=== PATIENT | female | born 1975 | race Caucasian/White ===

== ENCOUNTER 2019-09-24 08:36 | Inpatient (IN) | payer OTHER ==
[~2019-09-24] VITALS: Ht 162.6 cm; Wt 97.5 kg
[~2019-09-24 08:36] MED LIST: BUPROPION XL300 MG PO; CLONAZEPAM0.5 MG PO; ESTAZOLAM2 MG PO; ZANTAC150 MG PO; [UNRECOGNIZED DRUG - OTHER] PO
[2019-09-26] MEDS ORDERED: DULOXETINE HCL40 MG PO (08:28)
[2019-09-26] MEDS ORDERED: BIOTIN1 M1 PO (08:28)
[2019-09-26] MEDS ORDERED: DERMACINRX5000 UNIT PO (08:29)
[2019-09-28] MEDS ORDERED: VITAMIN D3125 MC1 PO (09:36)
[2019-09-28] MEDS ORDERED: DULOXETINE HCL30 MG PO (09:37)
== END 2019-10-01 14:03 | disposition home or self-care (01) | DRG 742 ==
LOC: OB/GYN 09-26 07:15 → SURH 09-28 07:15 → O/R 09-28 07:27 → OB/GYN 09-28 07:27 → SURH 09-28 09:00 → OB/GYN 09-28 14:20
PROVIDERS: ADMIT Obstetrics & Gynecology; ATTEND Obstetrics & Gynecology
PROC: 0UT90ZL Resection of Uterus, Supracervical, Open Approach (ICD-10-PCS; principal; 2019-09-29)
PROC: 30233N1 Transfusion of Nonautologous Red Blood Cells into Peripheral Vein, Percutaneous Approach (ICD-10-PCS; 2019-09-29)
PROC: 0DNW0ZZ Release Peritoneum, Open Approach (ICD-10-PCS; 2019-09-29)
DX: D25.1 Intramural leiomyoma of uterus (principal); D62 Acute posthemorrhagic anemia; D25.0 Submucous leiomyoma of uterus; D25.2 Subserosal leiomyoma of uterus; F32.9 Major depressive disorder, single episode, unspecified; L98.0 Pyogenic granuloma; R00.0 Tachycardia, unspecified; N73.6 Female pelvic peritoneal adhesions (postinfective)

== ENCOUNTER 2021-06-26 08:30 | Inpatient (IN) | payer OTHER ==
[~2021-06-26] VITALS: Ht 162.6 cm; Wt 99.8 kg
[~2021-06-26 08:30] MED LIST changes: +BIOTIN1 M1 PO; +DERMACINRX5000 UNIT PO; +DULOXETINE HCL30 MG PO; +DULOXETINE HCL40 MG PO; +VITAMIN D3125 MC1 PO
[2021-06-26] MEDS ORDERED: VENLAFAXINE HC150 MG PO (10:15)
[2021-06-26] MEDS ORDERED: BUSP PO (10:16)
[2021-06-26] MEDS ORDERED: METFOR PO (10:16)
[2021-06-26] MEDS ORDERED: VYVANSE40 MG PO (10:17)
[2021-06-26] MEDS ORDERED: CLARITIN5 MG PO (10:17)
[2021-06-26] MEDS ORDERED: ESTAZOLAM2 MG PO (10:17)
[2021-06-26] MEDS ORDERED: CARAFATE1 GM PO (10:18)
[2021-07-02] MEDS ORDERED: METFORMIN HCL750 MG PO (08:39)
[2021-07-02] MEDS ORDERED: BUSPIRONE HCL10 MG (08:39)
[2021-07-06] MEDS ORDERED: CIPRO500 MG PO (13:22)
[2021-07-06] MEDS ORDERED: METRONIDAZOLE500 MG PO (13:23)
[2021-07-06] MEDS ORDERED: INTESTINEX680 M1 PO (13:24)
[2021-07-06] MEDS ORDERED: KETO10TA2 PO (13:25)
== END 2021-07-06 17:33 | disposition home or self-care (01) | DRG 330 ==
LOC: ADM 08:30 → O/R 07-02 06:00 → SURH 07-02 07:00 → CIR.AMB 07-02 08:30 → SURH 07-02 08:30 → EDSTATUS 07-02 08:30 → SURH 07-02 13:36
PROVIDERS: ADMIT Surgery; ATTEND Surgery
PROC: 07BC4ZZ Excision of Pelvis Lymphatic, Percutaneous Endoscopic Approach (ICD-10-PCS; 2021-07-02)
PROC: 0DBU4ZZ Excision of Omentum, Percutaneous Endoscopic Approach (ICD-10-PCS; 2021-07-02)
PROC: 0DNW4ZZ Release Peritoneum, Percutaneous Endoscopic Approach (ICD-10-PCS; 2021-07-02)
PROC: 0DNB4ZZ Release Ileum, Percutaneous Endoscopic Approach (ICD-10-PCS; 2021-07-02)
PROC: 0DNN4ZZ Release Sigmoid Colon, Percutaneous Endoscopic Approach (ICD-10-PCS; 2021-07-02)
PROC: 0DTF4ZZ Resection of Right Large Intestine, Percutaneous Endoscopic Approach (ICD-10-PCS; principal; 2021-07-02 07:00)
DX: D12.2 Benign neoplasm of ascending colon (principal); K92.1 Melena; K91.71 Accidental puncture and laceration of a digestive system organ or structure during a digestive system procedure; D37.4 Neoplasm of uncertain behavior of colon; R59.0 Localized enlarged lymph nodes; D72.828 Other elevated white blood cell count; E11.9 Type 2 diabetes mellitus without complications; Z79.4 Long term (current) use of insulin

== ENCOUNTER 2021-06-28 06:43 | Day surgery (SDC) | payer OTHER ==
[~2021-06-28 06:43] MED LIST changes: +BUSP PO; +CARAFATE1 GM PO; +CLARITIN5 MG PO; +METFOR PO; +VENLAFAXINE HC150 MG PO; +VYVANSE40 MG PO
== END 2021-06-28 11:45 | disposition home or self-care (01) ==
LOC: AMB-ENDOS 06:43
PROVIDERS: ATTEND Surgery
DX: D37.4 Neoplasm of uncertain behavior of colon (principal); Z88.8 Allergy status to other drugs, medicaments and biological substances